=== PATIENT | male | born 2000 | race Caucasian/White ===

== ENCOUNTER 2024-02-26 12:21 | Emergency (ER) | payer OTHER ==
[~2024-02-26] VITALS: Ht 182.9 cm; Wt 95.3 kg
[2024-02-26 12:28] VITALS: BP_SYST 150; PULSE 98; RESP 18; TEMP 98.8; O2SAT 100
[2024-02-26 15:11] VITALS: BP_SYST 130; PULSE 97; RESP 18; TEMP 98.4; O2SAT 97
== END 2024-02-26 15:03 | disposition home or self-care (01) ==
LOC: SED 12:21
DX: S13.4XXA Sprain of ligaments of cervical spine, initial encounter (principal); M54.6 Pain in thoracic spine; M54.50 Low back pain, unspecified; R51.9 Headache, unspecified; V89.2XXA Person injured in unspecified motor-vehicle accident, traffic, initial encounter; Y93.89 Activity, other specified; Y92.89 Other specified places as the place of occurrence of the external cause; Y99.8 Other external cause status
CPT/HCPCS: 70450-TC; 72125-TC; 72128; 72131; 99284